=== PATIENT | female | born 1940 | race Caucasian/White ===

== ENCOUNTER → 2016-12-14 | Outpatient (CLI) | payer MEDICARE | END | disposition home or self-care (01) | LOC: LABWHC1 10:36 | PROVIDERS: ATTEND Psychiatry & Neurology Neurology | DX: G50.0 Trigeminal neuralgia (principal); Z79.899 Other long term (current) drug therapy | CPT/HCPCS: 36415; 82306 ==

== ENCOUNTER → 2018-07-08 | Outpatient (CLI) | payer MEDICARE ==
--- NOTE | 2018-07-08 16:00 | CT ---
EXAMINATION TYPE: CT brain wo con DATE OF EXAM: 07/08/2018 COMPARISON: None HISTORY: c/o headaches, dizziness, loss of balance. CT DLP: 1036 mGycm Automated exposure control for dose reduction was used. FINDINGS: There is a moderate generalized degenerative change. Slightly greater frontal lobe component. Faint l ow-attenuation in the periventricular white matter is nonspecific but most typical remote microvascul ar ischemia. No acute hemorrhage or mass effect. No midline shift. Tiny area of low attenuation in the basal ganglia may represent prominent Virchow-R obin spaces rather than remote lacunar infarct. Calvarium intact. Changes of chronic sinusitis noted. IMPRESSION: GENERATIVE AND NONSPECIFIC WHITE MATTER CHANGES MOST TYPICAL REMOTE MICROVASCULAR ISCHEMIA. NO MASS E FFECT OR MIDLINE SHIFT. IF SYMPTOMS PERSIST CONSIDER FOLLOW-UP MRI.
--- NOTE | 2018-07-08 16:46 | US ---
EXAMINATION TYPE: US carotid duplex BILAT DATE OF EXAM: 07/08/2018 COMPARISON: NONE CLINICAL HISTORY: R55 Syncope, G45.9 TIA,R42 Dizziness. dizziness, no hx tia, no htn EXAM MEASUREMENTS: RIGHT: Peak Systolic Velocity (PSV) cm/sec ----- Right CCA: 80.0 ----- Right ICA: 87.7 ----- Right ECA: 74.5 ICA/CCA ratio: 1.1 RIGHT: End Diastole cm/sec ----- Right CCA: 22.7 ----- Right ICA: 35.9 ----- Right ECA: 16.1 LEFT: Peak Systolic Velocity (PSV) cm/sec ----- Left CCA: 92.8 ----- Left ICA: 85.0 ----- Left ECA: 73.9 ICA/CCA ratio: 0.9 LEFT: End Diastole cm/sec ----- Left CCA: 28.0 ----- Left ICA: 26.7 ----- Left ECA: 15.4 VERTEBRALS (direction of flow): Right Vertebral: Antegrade Left Vertebral: Antegrade Rhythm: Normal No elevated velocities, significant stenosis, plaque or wall thickening. Right ICA appears to have c urves. Grayscale, color Doppler, spectral Doppler imaging performed of the carotid arteries. Waveform analys is does not show significant stenosis of the internal carotid arteries. IMPRESSION: No hemodynamic significant stenosis of the proximal internal carotid arteries bilaterall y by Doppler criteria, an indirect measurement of carotid stenosis
== END | disposition home or self-care (01) ==
LOC: RADCTMAIN 15:27
PROVIDERS: ATTEND Family Medicine
DX: R90.82 White matter disease, unspecified (principal); R55 Syncope and collapse; R42 Dizziness and giddiness; G45.9 Transient cerebral ischemic attack, unspecified
CPT/HCPCS: 70450; 93880

== ENCOUNTER → 2019-04-17 | Outpatient (CLI) | payer MEDICARE ==
--- NOTE | 2019-04-17 22:11 | CONS ---
CONSULTATION DATE OF SERVICE: 04/17/2019 This 79-year-old lady has been evaluated in the sleep center for possible obstructive sleep apnea-hypopnea syndrome. HISTORY OF PRESENT ILLNESS/SLEEP WAKE EVALUATION: SLEEP SCHEDULE: Patient's usual sleep schedule from midnight until 8 a.m. FALLING ASLEEP: No problems with falling asleep. No TV in bedroom. DURING SLEEP: She prefers to sleep on the back position. According to her family, she snores loudly, has episodes of stopped breathing during sleep. Positive history of sleep talking and awakenings with dry mouth. No history of nocturia. DURING THE DAY/SLEEP WAKE EVALUATION: In the morning, patient wakes up tired, has difficulties to pay attention, falling asleep during the day, has problems with memory and concentration. [place] Sleepiness Scale increased to 12. The patient takes one nap in the afternoon time usually. No history of hypnagogic hallucinations, sleep paralysis or cataplexy. She may see dreams while taking naps. PAST MEDICAL HISTORY: Positive for trigeminal neuralgia on the right side. MEDICATIONS: Neurontin, Elavil, Tegretol. PAST SURGICAL HISTORY: Tonsillectomy. SOCIAL HISTORY: Positive for smoking for about 40 years, 1/2 to 1/4 pack a day. Quit about 20 years ago. Alcohol consumption: None. FAMILY HISTORY: Asthma, sinus problems, thyroid problems. REVIEW OF SYSTEMS: Tiredness and sleepiness during the day, episodes of trigeminal neuralgia. PHYSICAL EXAM: lady without distress, BP 116/78, HR 92, RR 16, height 5 feet 5.5 inches, weight 270.4 pounds. Body mass index 44.2, temperature 98.2, oxygen saturation on room air, 92%. Oropharynx: Extremely low position of soft palate. Mallampati 4. Some restriction of nasal breathing. Wide neck 18-1/4 inches in circumference. EXTREMITIES 1 to 2+ bilateral ankle edema. NECK: Supple, no JVD. Thyroid is not palpable. LUNGS: Clear to percussion and to auscultation. Good air exchange. No wheezing or rhonchi. HEART: S1, S2 regular. No murmurs, gallops, or rubs. ABDOMEN: Obese. Soft and nontender. Bowel sounds are present. No organomegaly appreciated. INSULATION POWER UNIT TENDER: Awake, alert, and oriented X3. Cranial nerves 2 to 7 intact. There is no fasciculation or atrophy. noted. No focal deficits observed. IMPRESSION: 1. Loud snoring, witnessed episodes of stopped breathing during the sleep, extremely low position of soft palate, Mallampati IV, wide neck, sleepiness, obstructive sleep apnea-hypopnea syndrome. 2. Obesity BMI 44.2. 3. Episodes of trigeminal neuralgia on the right side. 4. Status post tonsillectomy. PLAN: 1. Polysomnography for evaluation of patient's breathing during sleep. 2. CPAP/BiPAP titration if sleep study confirms obstructive sleep apnea-hypopnea syndrome. 3. Preferable position during sleep on the side. 4. No driving if patient feels any sleepiness. 5. I will see patient for follow up visit to explain results of testing and following plan. Thank you very much for referring this patient for consultation. Sincerely, Keny Espinosa MD, PhD, FAASM Diplomat of [employer] Unit Tender of [facility] [place] MMODL / WILMAN: [id number] /
== END | disposition home or self-care (01) ==
LOC: SLEEP 14:09
PROVIDERS: ATTEND Internal Medicine
DX: R06.83 Snoring (principal); E66.9 Obesity, unspecified; Z68.41 Body mass index [BMI] 40.0-44.9, adult; G50.0 Trigeminal neuralgia; Z90.89 Acquired absence of other organs; F17.210 Nicotine dependence, cigarettes, uncomplicated; Z79.899 Other long term (current) drug therapy
CPT/HCPCS: 99211

== ENCOUNTER → 2019-10-02 | Outpatient (CLI) | payer MEDICARE ==
--- NOTE | 2019-10-02 20:02 | SFUN ---
SLEEP CENTER FOLLOW UP NOTE DATE OF SERVICE: 10/02/2019 This patient is an 79-year-old lady who has been followed in Sleep Center for treatment of obstructive sleep apnea-hypopnea syndrome. Recently the patient had a polysomnogram and CPAP titration which showed obstructive sleep apnea and on titration her respiration normalized. Subsequently the patient received her CPAP unit. This is her first visit after she started to use her CPAP equipment. According to the patient and family, in the beginning she had problems with the mask because the head gear pressed on the area of trigeminal nerve, and patient has history of trigeminal neuralgia. She had difficulties using this type of nasal pillow. Then the nasal pillows were changed to AirFit P10, which has soft head gear nasal pillows, and the patient feels much better with this type of mask. I checked the patient's CPAP unit. Range of the pressure is 5 to 15, average pressure 9.9. Usage is 29/30 nights and 17/30 nights for more than 4 hours, with average usage 4.8 hours per night. Leak for the month is 48 L/minute. Apnea-hypopnea index for the month is 9.9. For the last week, leak is 25 L/minute with apnea-hypopnea index for the last 2 weeks 3.7 average, and for the last night 3.3, which is in normal range. That again was with AirFit P10 nasal pillow mask. MEDICATIONS: Elavil, Tegretol and Neurontin. PHYSICAL EXAMINATION: GENERAL: A pleasant patient without distress. VITAL SIGNS: BP 104/68, HR 91, RR 16, weight 281.2 pounds, temperature 98.5, oxygen saturation at room air 94%. HEENT: PERRLA, EOMI. Evaluation of oropharynx showed tongue protrudes midline. NECK: Supple. No JVD. Thyroid is not palpable. LUNGS: Clear to percussion and to auscultation. Good air exchange. No wheezing or rhonchi. HEART: S1, S2 regular. No murmurs, gallops or rubs. ABDOMEN: Slightly obese. EXTREMITIES: No clubbing or cyanosis. AIRCRAFT ENGINE SPECIALIST: Awake, alert, and oriented X3. Cranial nerves 2 to 7 intact. There is no fasciculation or atrophy. noted. No focal deficits observed. IMPRESSION: 1. Obstructive sleep apnea-hypopnea syndrome. The patient demonstrated good compliance with treatment, benefitting from treatment. 2. Patient had some problems with the full-face mask. After changing mask to nasal pillows, her breathing normalized. 3. Trigeminal neuralgia. 4. Status post tonsillectomy. PLAN: 1. Prescription of AirFit P10 nasal pillow mask. 2. Patient will continue to use PAP equipment every night for the whole night. 3. Sleep hygiene with regular time in bed for at least 7-1/2 to 8 hours. 4. Precautions related to driving. No driving if feeling sleepiness. 5. I will maintain all necessary prescription for PAP supplies including mask, tube, filters. 6. Watching weight. 7. No driving if feeling sleepiness. 8. Follow-up visit in 6 months or earlier if patient has any problems. Thank you very much for allowing me to participate in the management of your patient. Sincerely, Keny Espinosa MD, PhD, FAASM Diplomat of [employer] [employer] [employer] Data Warehousing Specialist of [facility] [place] MMODL / IJN: [id number] /
== END | disposition home or self-care (01) ==
LOC: SLEEP 09:50
PROVIDERS: ATTEND Internal Medicine
DX: G47.33 Obstructive sleep apnea (adult) (pediatric) (principal); G50.0 Trigeminal neuralgia; Z98.890 Other specified postprocedural states; Z99.89 Dependence on other enabling machines and devices

== ENCOUNTER → 2020-04-15 | Outpatient (CLI) | payer MEDICARE ==
--- NOTE | 2020-04-15 15:52 | SFUN ---
SLEEP CENTER FOLLOW UP NOTE DATE OF SERVICE: 04/15/2020 This 80-year-old lady had been followed in Sleep Center for treatment of obstructive sleep apnea-hypopnea syndrome. The patient is trying to use his CPAP equipment every night, but because of her history of trigeminal neuralgia, has problems with her mask because the full-face mask head gear pressed on her face and create pain. [place] Sleepiness Scale today is 10. The patient tried nasal pillow mask and she likes it more than the full-face mask, but possibly still open her mouth during the sleep. I checked CPAP unit. Range of the pressure 5-15 with average pressure 13.8, usage is 27 out of 30 nights and 14 out of 30 nights more than 4 hours. Leak is 35 L/minute. Apnea- hypopnea index is high 17.1. There is central apnea-hypopnea index 0.5. MEDICATIONS: Gabapentin, amitriptyline, carbamazepine. PHYSICAL EXAMINATION: GENERAL: Patient in no distress. VITAL SIGNS: BP 96/72, HR 90, RR 12, height 5 feet 5-1/2 inches, weight 278.6, temperature 96.1. Oxygen saturation at room air 94%. HEENT: PERRLA, EOMI, evaluation of oropharynx showed tongue protrudes midline. NECK: Supple, no JVD. Thyroid is not palpable. LUNGS: Clear to percussion and to auscultation. Good air exchange. No wheezing or rhonchi. HEART: S1, S2 regular. No murmurs, gallops, or rubs. ABDOMEN: Soft and nontender. Bowel sounds are present. No organomegaly appreciated. EXTREMITIES: No clubbing or cyanosis. MARINE ENGINEER CPVEC: Awake, alert, and oriented X3. Cranial nerves 2 to 7 intact. There is no fasciculation or atrophy. noted. No focal deficits observed. IMPRESSION: 1. Obstructive sleep apnea-hypopnea syndrome; apnea-hypopnea index 19.1 with severe oxygen desaturation to 44.5%. The patient demonstrated borderline compliance with CPAP therapy, benefitting from treatment, but still has problems related to her mask sitting. 2. Trigeminal neuralgia. 3. Status post tonsillectomy. 4. Morbid obesity. PLAN: 1. We will try to use different styles of the mask, nasal pillows, which keeps on the face with the head gear which goes around the ears, Kaufman FX Dayanna. 2. I will write a prescription for chin strap additionally to try with the nasal pillow mask. 3. We will give patient a different style of full-face mask to try. 4. I changed the pressure in the CPAP unit to the maximal pressure of 16 instead of 15. 5. I put machine to automatic ramp, which should help patient to feel better. When she wakes up in the middle of the night she feels the pressure is too high for her at that moment. 6. Patient will continue to use PAP equipment every night for the whole night. 7. Sleep hygiene with regular time in bed for at least 7-1/2 to 8 hours. 8. Precautions related to driving. No driving if feeling sleepiness. 9. I will maintain all necessary prescription for PAP supplies including mask, tube, filters. 10.Watching weight. 11.No driving if feeling sleepiness. 12.Follow-up visit in 6 months or earlier if patient has any problems. Thank you very much for allowing me to participate in management of your patient. Sincerely, Keny Espinosa MD, PhD, FAASM Diplomat of [place] [employer] [employer] Medicine [facility] [place] MMODL / IJN: [id number] /
== END ==
LOC: SLEEP 10:44
PROVIDERS: ATTEND Internal Medicine
DX: G47.33 Obstructive sleep apnea (adult) (pediatric) (principal); G50.0 Trigeminal neuralgia; E66.01 Morbid (severe) obesity due to excess calories; Z68.42 Body mass index [BMI] 45.0-49.9, adult; Z98.890 Other specified postprocedural states

== ENCOUNTER → 2020-07-08 | Outpatient (CLI) | payer MEDICARE ==
--- NOTE | 2020-07-09 11:01 | ECHOF ---
Referral Reason:R42 dizziness presurgical MEASUREMENTS -------- HEIGHT: 170.2 cm WEIGHT: 122.5 kg BP: 135/93 RVIDd: 3.3 cm (< 3.3) IVSd: 1.3 cm (0.6 - 1.1) LVIDd: 4.1 cm (3.9 - 5.3) LVPWd: 1.3 cm (0.6 - 1.1) IVSs: 1.7 cm LVIDs: 2.9 cm LVPWs: 1.8 cm LA Diam: 3.3 cm (2.7 - 3.8) Ao Diam: 2.9 cm (2.0 - 3.7) AV Cusp: 1.9 cm (1.5 - 2.6) MV E Clay: 0.56 m/s MV DecT: 289 ms MV A Clay: 0.95 m/s MV E/A Ratio: 0.59 RAP: 5.00 mmHg RVSP: 31.23 mmHg FINDINGS -------- Sinus rhythm. This was a technically difficult study with suboptimal views. The left ventricular size is normal. There is mild concentric left ventricular hypertrophy. Overa ll left ventricular systolic function is normal with, an EF between 60 - 65 %. The right ventricle is mildly enlarged. The left atrium is normal in size. The right atrium is normal in size. 5 ml of Lumason was utilized for enhancement of images. Interatrial and interventricular septum intact. The aortic valve is trileaflet and appears structurally normal. Mild mitral annular calcification present. There is mild pulmonary hypertension. The right ventricular systolic pressure, as measured by Doppl er, is 31.23mmHg. Trace/mild (physiologic) pulmonic regurgitation. The aortic root size is normal. Normal inferior vena cava with normal inspiratory collapse consistent with estimated right atrial pre ssure of 5 mmHg. There is no pericardial effusion. CONCLUSIONS -------- 1. The left ventricular size is normal. 2. There is mild concentric left ventricular hypertrophy. 3. Overall left ventricular systolic function is normal with, an EF between 60 - 65 %. 4. The right ventricle is mildly enlarged. 5. 5 ml of Lumason was utilized for enhancement of images. 6. Mild mitral annular calcification present. 7. There is mild pulmonary hypertension. 8. Trace/mild (physiologic) pulmonic regurgitation. 9. There is no pericardial effusion. LABELS MOLDER: Alisia Barry RDCS
== END | disposition home or self-care (01) ==
LOC: RADECHMAIN 11:53
PROVIDERS: ATTEND Internal Medicine
DX: I37.1 Nonrheumatic pulmonary valve insufficiency (principal); I27.20 Pulmonary hypertension, unspecified
CPT/HCPCS: C8929; Q9950; 93306

== ENCOUNTER → 2020-11-18 | Outpatient (CLI) | payer MEDICARE ==
--- NOTE | 2020-11-19 08:40 | SFUN ---
SLEEP CENTER FOLLOW UP NOTE DATE OF SERVICE: 11/18/2020 This 80-year-old lady has been followed in Sleep Center for treatment of obstructive sleep apnea-hypopnea syndrome. The patient continues to use her CPAP equipment. During the previous visit, her apnea- hypopnea index was increased to 17.1, and I made changes in her CPAP pressure. At that time we also changed the patient's mask. Her mask was changed to the Kaufman FX Dayanna because this mask does not have any head gear which goes to the area of the trigeminal nerve because the patient has problems with trigeminal neuralgia. But On July 12 the patient had surgery for trigeminal neuralgia and after that the feeling from her skin significantly improved, with no pain, and she could use different styles of mask now. I checked her CPAP unit. Range of the pressure 5 to 16. Usage is every night and 24/30 nights for more than 4 hours, average 5.4 hours per night, which is good compliance. Leak is borderline at 20 L/minute, but apnea-hypopnea index is totally perfect. Now it is only 1.9. Again, during the previous visit it was 17.1. MEDICATIONS: None on the at the present time. During previous visit, she was on 3 medications related to trigeminal neuralgia. PHYSICAL EXAMINATION: GENERAL: Pleasant patient in no distress. VITAL SIGNS: BP 118/81, HR 89, RR 12, height 5 feet 5-1/2 inches, weight 250.4 pounds, body mass index 40.9. The patient lost 28 pounds since her previous visit. Temperature 96.4, oxygen saturation at room air 95%. HEENT: PERRLA, EOMI, evaluation of oropharynx showed tongue protrudes midline. NECK: Supple, no JVD. Thyroid is not palpable. LUNGS: Clear to percussion and to auscultation. Good air exchange. No wheezing or rhonchi. HEART: S1, S2 regular. No murmurs, gallops, or rubs. ABDOMEN: Soft and nontender. Bowel sounds are present. No organomegaly appreciated. EXTREMITIES: No clubbing or cyanosis. DIRECTOR ONLINE MARKETING: Awake, alert, and oriented X3. Cranial nerves 2 to 7 intact. There is no fasciculation or atrophy. noted. No focal deficits observed. IMPRESSION: 1. Obstructive sleep apnea-hypopnea syndrome in moderate range. Original apnea- hypopnea index 19.1 with severe oxygen desaturation. The patient demonstrated 100% compliance with treatment, benefitting from treatment. Normal respiration on CPAP. 2. History of trigeminal neuralgia, status post craniotomy on July 12. The patient feels no pain after the surgery; significant improvements. 3. Status post tonsillectomy. 4. Obesity. Patient lost 28 pounds since her previous visit. PLAN: 1. Prescription for a Kaufman FX nasal pillow mask instead of Kaufman FX Dayanna. 2. Patient will continue to use PAP equipment every night for the whole night. 3. Sleep hygiene with regular time in bed for at least 7-1/2 to 8 hours. 4. Precautions related to driving. No driving if feeling sleepiness. 5. I will maintain all necessary prescription for PAP supplies including mask, tube, filters. 6. Watching weight. 7. Follow-up visit in 6 months or earlier if patient has any problems. Thank you very much for allowing me to participate in the management of your patient. Sincerely, Keny Espinosa MD, PhD, FAASM Diplomat of [employer] [employer] Sleep Medicine Board of [place] [employer] Medicine Manager Protein of [facility] [place] MMODL / IJN: [id number] /
== END ==
LOC: SLEEP 10:54
PROVIDERS: ATTEND Internal Medicine
DX: G47.33 Obstructive sleep apnea (adult) (pediatric) (principal); G47.36 Sleep related hypoventilation in conditions classified elsewhere; E66.9 Obesity, unspecified; Z90.09 Acquired absence of other part of head and neck; Z86.69 Personal history of other diseases of the nervous system and sense organs; Z99.89 Dependence on other enabling machines and devices; Z68.41 Body mass index [BMI] 40.0-44.9, adult